=== PATIENT | female | born 1955 | race Caucasian/White ===

== ENCOUNTER → 2017-09-09 | Day surgery (SDC) | payer OTHER ==
[~2017-09-09] MED LIST: ACETAMINOPHEN/HYDROcodone 325 MG/5 MG TAB ONE; BUPIVACAINE/EPINEPHRINE 0.5% PF 30 ML VIAL ONE; KETOROLAC TROMETHAMINE 30 MG/ML (IVP) VIAL IV PUSH ONE; LACTATED RINGER'S 1000 ML INJ 1,000 ML ONE; MEPERIDINE HCL 25 MG/ML VIAL ONE; MIDAZOLAM HCL 2 MG/2 ML VIAL ONE; MORPHINE SULFATE 4 MG/ML INJ ONE; ONDANSETRON HCL 4 MG/2 ML VIAL IV PUSH ONE; PROPOFOL 200 MG/20 ML AMP IV ONE; ceFAZolin 2 GM PREMIX 50 ML ONE
--- NOTE | 2017-09-09 11:40 | MP ---
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 POSTOPERATIVE DIAGNOSIS: Left knee posterior horn medial meniscus tear and chondromalacia medial compartment. DETAILS OF PROCEDURE: Left knee arthroscopic partial medial meniscectomy and chondroplasty of medial femoral condyle. ANESTHESIA: General. SURGEON: Daron Coughlin MD ESTIMATED BLOOD LOSS: Minimum. DRAINS: None. SPECIMENS: Fragments discarded. COMPLICATIONS: None known. INDICATIONS: Linda Tate is a 62-year-old female with debilitating left knee medial joint line pain and positive findings on x-ray of arthritic change and on MRI of chondromalacia and medial meniscus tear. The alternatives to treatment were reviewed and she has been offered arthroscopic partial medial meniscectomy and chondroplasty of medial femoral condyle. The risks, benefits and alternatives to treatment were thoroughly discussed and a detailed informed consent has been obtained for left knee arthroscopy. DESCRIPTION OF PROCEDURE: The patient was brought into the operating room. She was placed under general anesthetic. The left lower extremity was draped and prepped in the usual sterile fashion. IV antibiotics were given. Timeout was completed. An anterolateral portal was made with Marcaine about the portals. Blunt trocar was used to used to introduce cannula. The knee was insufflated with saline. The patellofemoral joint showed some mild chondromalacia. Notch showed a normal appearing ACL. The medial compartment showed chondromalacia weightbearing portion of the medial femoral condyle and a medial meniscus tear and a tear involving the root of the medial meniscus. We made our inferior medial portal and there was some bleeding coming from the synovial tissue within the notch. Electrocautery was opened and hemostasis obtained. There was also a significant amount of particulate debris within the knee which was thoroughly washed out and once that was washed out, visualization was significantly improved. We proceeded with arthroscopic partial medial meniscectomy using a combination of basket forceps and arthroscopic shaver. There was some remnant tissue where the root had pulled away and slight amount bleeding there, obtained hemostasis with cautery. There was significant amount of particulate cartilage flaking off the medial femoral condyle and we performed a chondroplasty with the shaver blade 90 degrees to the space of the condyle and smoothed and fine tuned this with multiple degrees flexion, extension and took followup photograph there. We then took our photograph of the notch, ACL and 2 photographs of the lateral compartment, which appeared fairly normal and then a final visualization and fine tuning in the medial compartment. Final photographs taken here. Overall, hemostasis was very good. Repeat diagnostic arthroscopy revealed no loose bodies. The arthroscopic equipment was removed. Marcaine had been injected about the portals. Steri-Strips applied. Sterile dressing applied. The patient was awakened and returned to recovery room in stable condition. MD VIBHA Rees/JETHRO , 11:10 AM , 11:38 AM
== END | disposition home or self-care (01) ==
LOC: ESDC 08:17
PROVIDERS: ATTEND Orthopaedic Surgery Sports Medicine
DX: S83.242A Other tear of medial meniscus, current injury, left knee, initial encounter (principal); M94.262 Chondromalacia, left knee; Z01.810 Encounter for preprocedural cardiovascular examination
CPT/HCPCS: 01400; 29881; 93005; J0690; J1885; J2175; J2250; J2270; J2405; J3010; J7120